=== PATIENT | female | born 1975 | race Caucasian/White ===

== ENCOUNTER 2019-02-11 16:33 | Inpatient (IN) ==
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
[2019-02-11 17:17] LABS: Hematocrit 32.9 % (37.0-47.0); Hemoglobin 10.6 gm/dL (12.5-16.0); Mean Cell Volume 90.6 fl (78-100); Mean Corpuscular Hemoglobin 29.2 pg (27-31); Mean Corpuscular Hgb Conc 32.2 g/dl (32-36); Neutrophil # 5.2 K/mm3 (1.3-6.0); Platelet Count 400 K/mm3 (150-450); Red Blood Count 3.63 M/mm3 (4.2-5.4); Red Cell Distribution Width 13.8 % (11.5-14.0); White Blood Count 7.7 K/mm3 (4.0-10.5)
[2019-02-11 17:35] LABS: ALT 13 U/L (19-67); AST 22 U/L (0-48); Albumin * 3.8 gm/dl (3.4-5.0); Alkaline Phosphatase * 82 U/L (50-170); Anion Gap 11.8 mmol/L (6.8-13.8); BUN/Creatinine Ratio 5.9 (9.0-21.6); Bilirubin, Total 0.3 mg/dL (0.0-1.1); Blood Urea Nitrogen 7 mg/dL (3-23); Chloride 101 mmol/L (97-106); Glucose * 90 mg/dL (70-110); Potassium 3.8 mmol/L (3.4-4.6); Sodium 140 mmol/L (132-142); TSH * 49.642 uIU/mL (0.358-3.74); Total Protein 7.9 gm/dL (6.2-8.2); Troponin I Less than 0.017 ng/mL (0.00-0.10)
[2019-02-11 17:38] LABS: Calcium * 5.2 mg/dL (7.9-10.9)
[2019-02-11 17:56] LABS: Urine Bilirubin Negative (NEGATIVE); Urine Blood Negative /ul (NEGATIVE); Urine Ketone Negative (NEGATIVE); Urine Nitrite Negative (NEGATIVE); Urine Protein Negative (NEGATIVE); Urine Urobilinogen Normal (NORMAL); Urine pH 7.5 pH (5.0-7.0)
[2019-02-11 18:02] LABS: Urine Appearance Clear (CLEAR); Urine Bacteria TRACE; Urine Color Yellow; Urine RBC None Seen /hpf (0-5); Urine WBC 0-5 /hpf (0-5)
[2019-02-11 18:07] LABS: Cocaine Ur Negative (NEGATIVE); Urine Barbiturate Negative (NEGATIVE); Urine Benzodiazepines Negative (NEGATIVE); Urine Opiates Negative (NEGATIVE); Urine PCP Negative (NEGATIVE); Urine THC Negative (NEGATIVE)
[2019-02-11] MEDS ORDERED: DEXTROSE 5% IV ONE ×2 (18:10)
[2019-02-11] MEDS ORDERED: CALCIUM GLUCONATE IV ONE ×2 (18:10)
[2019-02-11] MEDS ORDERED: WATER IV ONE ×2 (18:10)
[2019-02-11] MEDS ORDERED: PIPERONYL BUTOX/PYRETHR/PERMET 1 EACH KIT TP ONE (18:26)
[2019-02-11] MEDS ORDERED: CALCIUM GLUCONATE 4.65 MEQ/10 ML VIAL IV ONE (23:09)
[2019-02-12] MEDS: NICOTINE 21 MG PATC TD SCH ×2 (00:05→22:16)
[2019-02-12] MEDS ORDERED: FLU VACC QS2019-20(6MOS UP)/PF 60 MCG/0.5 ML SYRINGE IM ONE (09:00)
[2019-02-12] MEDS ORDERED: ENOXAPARIN SODIUM 40 MG/0.4 ML SYRG SC SCH (11:15)
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
[2019-02-12 12:27] LABS: Calcium * 6.3 mg/dL (7.9-10.9)
[2019-02-12 12:31] LABS: Hematocrit 32.6 % (37.0-47.0); Hemoglobin 10.7 gm/dL (12.5-16.0); Mean Cell Volume 91.3 fl (78-100); Mean Corpuscular Hgb Conc 32.8 g/dl (32-36); Mean Platelet Volume 9.6 fl (8-12.5); Neutrophil % 70.9 % (42-75.0); Platelet Count 403 K/mm3 (150-450); Red Blood Count 3.57 M/mm3 (4.2-5.4); Red Cell Distribution Width 13.8 % (11.5-14.0); White Blood Count 7.1 K/mm3 (4.0-10.5)
[2019-02-12 12:40] LABS: Albumin * 3.7 gm/dl (3.4-5.0); Anion Gap 13.5 mmol/L (6.8-13.8); BUN/Creatinine Ratio 8.9 (9.0-21.6); Bilirubin, Total 0.5 mg/dL (0.0-1.1); Ca. Corrected For Albumin 6.2 mg/dL (8.4-10.2); Carbon Dioxide 28.2 mmol/L (24-32.6); Potassium 3.7 mmol/L (3.4-4.6); Total Protein 7.4 gm/dL (6.2-8.2)
[2019-02-12] MEDS ORDERED: CALCIUM GLUCONATE 4.65 MEQ/10 ML VIAL IV ONE (13:23)
[2019-02-12] MEDS ORDERED: NORMAL SALINE IV ONE ×3 (14:00)
[2019-02-12] MEDS ORDERED: CALCIUM GLUCONATE IV ONE ×3 (14:00)
--- NOTE | 2019-02-12 15:49 | PN ---
Progess Note - Interim Date: 02/12/19 Time: 03:30 Narrative: 02/12/19 15:[address] Che about MRI results. Discussed about starting Keppra 250 mg PO BID, and completing EEG prior to discharge. Anticipate discharge tomorrow AM and follow up outpatient.
[2019-02-12 16:09] LABS: Anion Gap 12.6 mmol/L (6.8-13.8); BUN/Creatinine Ratio 9.8 (9.0-21.6); Calcium * 7.1 mg/dL (7.9-10.9); Carbon Dioxide 29.2 mmol/L (24-32.6); Estimated Creat Clear 48.1; Potassium 3.8 mmol/L (3.4-4.6)
[2019-02-12] MEDS ORDERED: traZODone HCL 50 MG TABLET PO SCH (21:00)
[2019-02-12] MEDS: levETIRAcetam 500 MG TABLET PO SCH (21:34)
[2019-02-12] MEDS ORDERED: REMOVE PATCH 1 PATCH PATCH TP SCH (23:30)
[2019-02-13] MEDS ORDERED: LEVOTHYROXINE SODIUM 75 MCG TABLET PO SCH (07:00)
[2019-02-13] MEDS: levETIRAcetam 500 MG TABLET PO SCH (08:00)
[2019-02-13] MEDS ORDERED: CALCIUM GLUCONATE 4.65 MEQ/10 ML VIAL IV ONE (09:52)
--- NOTE | 2019-02-13 09:55 | DS ---
(1) Seizure Problem: Acute (2) Hypocalcemia Problem: Acute (3) Hypothyroidism (acquired) Problem: Chronic (4) Methamphetamine abuse Problem: Chronic (5) Major depression Problem: Chronic Qualifiers: Major depression recurrence: recurrent Active/Remission status: currently active Major depression episode severity: moderate Qualified Code(s): F33.1 - Major depressive disorder, recurrent, moderate Date of Discharge:: 02/13/19 Description of Stay: 43-year-old female with no past medical history of seizures and need for mastectomy to [facility] for hypocalcemia and new onset seizures. On arrival patient was found to be positive for methamphetamines. Calcium may repeated. No seizures while hospitalized. CT of the head completed was concerning for possible calcification versus blood versus unknown lesion. MRI completed concerning for single cyst versus minimal bleed in the right parietal lobe. Renal consulted. Evaluated images. Advised to start patient on Keppra. Advised to complete EEG prior to discharge. She will receive the same infusion today prior to discharge around 4 PM. Patient will be scheduled with a follow- up appointment outpatient with Dr. Che for further management. Patient was scheduled for appointment with primary care provider upon discharge. Procedures Performed: none Results and Findings: Lab Pending Results 02/11/19 17:00: WBC 7.7, RBC 3.63 L, Hgb 10.6 L, Hct 32.9 L, MCV 90.6, MCH 29.2, MCHC 32.2, RDW 13.8, Plt Count 400, MPV 9.0, Immature Gran % (Auto) 0.50 H, Immature Gran # (Auto) 0.04 H, Neutrophils % 68.0, Lymphocytes % 20.8, Monocytes % 7.6, Eosinophils % 2.1, Basophils % 1.0, Nucleated RBC % 0.0, Neutrophils # 5.2, Lymphocytes # 1.60, Monocytes # 0.6, Eosinophils # 0.2, Absolute Basophils 0.1 02/11/19 17:00: Sodium 140, Plasma Sodium 140, Potassium 3.8, Chloride 101, Carbon Dioxide 31.0, Anion Gap 11.8, BUN 7, Creatinine 1.19, Est GFR (Non-Af Amer) 52 L D, BUN/Creatinine Ratio 5.9 L, Random Glucose 90, Calcium 5.2 L D, Calcium Adj for Albumin 5.0 L* D, Total Bilirubin 0.3, AST 22, ALT 13 L, Alkaline Phosphatase 82, Troponin I Less than 0.017, Total Protein 7.9, Albumin 3.8, TSH 49.642 H, Ethyl Alcohol Less than 3.0 02/11/19 17:00: Magnesium 2.0 02/11/19 17:37: Urine Color Yellow, Urine Appearance Clear, Urine pH 7.5, Ur Specific [place] 1.010, Urine Protein Negative, Urine Glucose (UA) Negative, Urine Ketones Negative, Urine Blood Negative, Urine Nitrate Negative, Urine Bilirubin Negative, Urine Urobilinogen Normal, Ur Leukocyte Esterase Negative, Urine RBC None seen, Urine WBC 0-5, Ur Epithelial Cells 5-10 H, Urine Bacteria Trace, Urine Culture Comments No culture indicated 02/11/19 17:37: Urine Opiates Screen Negative, Barbiturate Screen Negative, Ur Phencyclidine Scrn Negative, Urine Amphetamine Positive H, U Benzodiazepines Scrn Negative, Urine Cocaine Screen Negative, Urine Marijuana (THC) Negative 02/11/19 21:46: Calcium 6.3 L 02/12/19 03:00: Calcium 6.4 L 02/12/19 09:05: Calcium 6.3 L 02/12/19 09:05: WBC 7.1, RBC 3.57 L, Hgb 10.7 L, Hct 32.6 L, MCV 91.3, MCH 30.0, MCHC 32.8, RDW 13.8, Plt Count 403, MPV 9.6, Immature Gran % (Auto) 0.30, Immature Gran # (Auto) 0.02, Neutrophils % 70.9, Lymphocytes % 19.4 L, Monocytes % 5.9, Eosinophils % 2.5, Basophils % 1.0, Nucleated RBC % 0.0, Neutrophils # 5.0, Lymphocytes # 1.38 L, Monocytes # 0.4, Eosinophils # 0.2, Absolute Basophils 0.1 02/12/19 09:05: Sodium 136, Plasma Sodium 136, Potassium 3.7, Chloride 98, Carbon Dioxide 28.2, Anion Gap 13.5, BUN 10, Creatinine 1.12, Est GFR (Non-Af Amer) 56 L, BUN/Creatinine Ratio 8.9 L, Random Glucose 100, Calcium 6.3 L, Calcium Adj for Albumin 6.2 L, Total Bilirubin 0.5, AST 26, ALT 13 L, Alkaline Phosphatase 83, Total Protein 7.4, Albumin 3.7 02/12/19 16:00: Sodium 134, Plasma Sodium 134, Potassium 3.8, Chloride 96 L, Carbon Dioxide 29.2, Anion Gap 12.6, BUN 12, Creatinine 1.22, Est GFR (Non-Af Amer) 51 L, BUN/Creatinine Ratio 9.8, Random Glucose 93, Calcium 7.1 L Discharge Location: Home Disposition: Home self-care Condition: Stable Discharge Activity: Activity as tolerated Discharge Diet: General/regular food Referrals: Yosi Lindsey MD [Primary Care Provider] - One Week Néstor Che MD [Consulting Physician] - One Week Consultation Done:: Dr. Yane MD Neurology Prescriptions (Any new or edited meds): levETIRAcetam [Keppra] 250 mg PO BID #60 tab Transmission Status: Pending to [facility] - [place], [place] Complete Home Medications List: Complete Home Medication List: levothyroxine 75 mcg capsule 75 mcg PO DAILY #30 cap 01/22/19 levETIRAcetam [Keppra] 250 mg PO BID #60 tab 02/13/19
[2019-02-13] MEDS ORDERED: NORMAL SALINE IV ONE (11:30)
[2019-02-13] MEDS ORDERED: CALCIUM GLUCONATE IV ONE (11:30)
[2019-02-13 14:19] LABS: Anion Gap 14.1 mmol/L (6.8-13.8); BUN/Creatinine Ratio 12.1 (9.0-21.6); Calcium * 7.1 mg/dL (7.9-10.9); Carbon Dioxide 29.5 mmol/L (24-32.6); Estimated Creat Clear 54.9; Potassium 3.6 mmol/L (3.4-4.6)
[2019-02-13 16:45] VITALS: BP 102/68
== END 2019-02-13 17:30 | disposition home or self-care (01) | DRG 101 ==
LOC: ER 16:33 → MS 18:11
PROVIDERS: ADMIT Family Medicine; ATTEND Family Medicine
DX: F33.9 Major depressive disorder, recurrent, unspecified; R56.9 Unspecified convulsions; Z23 Encounter for immunization; E03.9 Hypothyroidism, unspecified; E83.51 Hypocalcemia; F17.210 Nicotine dependence, cigarettes, uncomplicated; F15.10 Other stimulant abuse, uncomplicated; B85.0 Pediculosis due to Pediculus humanus capitis
CPT/HCPCS: 36415; 70450; 70553; 80048; 80050; 80053; 80307; 80320; 81001; 82310; 83735; 84484; 85025; 87081; 87389; 90686; 93005; 95813; 99285; A9576; G0481